=== PATIENT | male | born 1955 | race Caucasian/White ===

== ENCOUNTER 2021-12-14 11:22 | Outpatient (REF) | payer SELFPAY | END 2021-12-14 11:23 | disposition home or self-care (01) | LOC: HO.HAP 11:22 | PROVIDERS: Visit Provider Pediatrics | DX: Z13.89 Encounter for screening for other disorder (principal) ==

== ENCOUNTER 2022-11-06 10:51 | Outpatient (REF) | payer SELFPAY | END 2022-11-06 10:52 | disposition home or self-care (01) | LOC: HO.HAP 10:51 | PROVIDERS: Visit Provider Pediatrics | DX: Z13.89 Encounter for screening for other disorder (principal) ==

== ENCOUNTER 2022-12-12 12:01 | Outpatient (REF) | payer SELFPAY | END 2022-12-12 12:02 | disposition home or self-care (01) | LOC: HO.HAP 12:01 | PROVIDERS: Visit Provider Internal Medicine | DX: Z13.89 Encounter for screening for other disorder (principal) ==

== ENCOUNTER 2023-11-27 13:42 | Outpatient (REF) | payer SELFPAY | END 2023-11-27 13:43 | disposition home or self-care (01) | LOC: HO.HAP 13:42 | DX: Z13.89 Encounter for screening for other disorder (principal) ==

== ENCOUNTER 2023-12-25 15:41 | Outpatient (REF) | payer SELFPAY | END 2023-12-25 15:42 | disposition home or self-care (01) | LOC: HO.HAP 15:41 | DX: Z13.89 Encounter for screening for other disorder (principal) ==

== ENCOUNTER 2024-09-01 09:16 | Outpatient (REF) | payer BC, SELFPAY ==
--- OUTSIDE RECORDS SUMMARY | 2024-09-01 10:03 | XMS_ITS | Encounter Summary ---
Author Organization [facility] Address [address] [place] [address] Care Team Providers Care Sweatband Flanger Name Role Phone Pablo Bettencourt MD Primary Care Provider [phone] Reason for Visit * Reason Onset Date Comments Faxed Order Intitial Eval Summary for Rehab 08/02 Encounter Details Date Type Department Care Team (Late st Contact Info) Description 08/11/2024 Telephone Adult [facility] [address] [place] [phone] Geraldo Arriaza PA [address] [place] [address] Faxed Order Intitial Eval Summary for Rehab Social History Tobacco Use Types Packs/Day Years Used Date Smoking Tobacco: Former Cigarettes Q uit: 10/01/2015 Smokeless Tobacco: Never Alcohol Use Standard Drinks/Week Comments Not Currently 0 (1 standard drink = 0.6 oz pur e alcohol) Sex and Gender Information Value Date Recorded Sex Assigned at Not on file Legal Sex Male 11:27 AM EST Gender Identity Not on file Sexual Orientation Not on file documented as of this encounter Progress Notes * Rossy Stringer - 08/11/2024 12:37 PM EST PLEASE CLOSE MESSAGE WHEN ORDER HAS BEEN FAXED Faxed order Initial Eval [facility] requesting signature from provider. Please sign and fax back to [phone]. Order in yellow folder documented in this encounter Plan of Treatment Not on file documented as of this encounter Visit Diagnoses Not on filedocumented in this encounter Care Teams Sweatband Flanger Relationship Specialty Start Date End Date Pablo Bettencourt MD [address] [place] [phone] PCP - General Internal Medicine 03/18/19 documented as of this encounter
--- OUTSIDE RECORDS SUMMARY | 2024-09-01 10:03 | XMS_ITS | Clinical Summary ---
Author Organization [facility] [address] [facility] Address [address] [facility] [place] [address] Phone Care Team Providers Care Candy Counter Clerk Name Role Phone Pablo Bettencourt MD Primary Care Provider [phone] Allergies No known active allergies Medications acetaminophen (TYLENOL) 500 mg tablet Take 2 tablets (1,000 mg total) by mouth every 8 hours as needed. 07/28/2021 Active ibuprofen (ADVIL,MOTRIN) 200 mg tablet Take by mouth every 6 (six) hours if needed. Active Active Problems Problem Noted Date Diagnosed Date Renal cyst 06/06/2022 Overview (07/13/2024): Abd u/s: Complex small cyst in the upper pole of the right kidney with some partially calcified rim. Follow-up renal ultrasound in 6 months is recommended. 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 Repeat normal. Hyperlipidemia 07/03/2008 Low back pain 03/31/2006 Overview (07/13/2024): Onset mar 2006 Encounters Date Type Department Care Team Description 08/11/2024 Telephone Adult Medicine [facility] [address] [place] [phone] Geraldo Arriaza PA Faxed Order Intitial Eval Summary for Rehab 08/01/2024 9:45 AM EST Office Visit Adult [facility] [address] [place] [address] Geraldo Arriaza PA Acute exacerbation of chronic low back pain (Primary Dx) 06/13/2024 Telephone Adult [facility] [address] [place] [address] Pablo Bettencourt MD triage call back; wrenched back from Last 3 Months Immunizations Name Administration Dates Next Due Influenza Quadravalent, MDCK , 0.5ml, preservative free (Flucelvax) 6mo and older 07/31/2019 Influenza Quadravalent, MDCK , 0.5ml, with preservative (Flucelvax) 6mo and older 07/21/2021 Influenza trivalent, 0.5mL ( Fluad) 65yo and older 03/12/2023,05/24/2022,07/21/2021,2015,07/13/2012,04/06/2011,04/15/2007 Influenza trivalent, 0.5mL ( Fluzone High-dose) 65yo and older 03/17/2024,03/12/2023,05/24/2022 Influenza trivalent, with preservative (Fluzone; Afluria) 6mo and older 03/27/2016,07/13/2012,04/06/2011,2006 Tdap Tetanus diptheria acell ular pertussis (Boostrix; Adacel) 7yo and older 07/13/2017,01/07/2014,04/15/2007 Zoster Live 11/29/2016 Zoster recombinant (Shingrix ) 19yo and older 02/03/2022,07/21/2021 Surgical History Surgery Date Site/Laterality Comments HERNIA REPAIR PROCEDURE: HISTORICAL HERNIA REPAIR/ING SHOULDER SURGERY 07/2021 PROCEDURE: HISTORICAL SHOULDER SURGERY; COMMENT: left rotator arthroscopy COLONOSCOPY 12/01/2021 PROCEDURE: HISTORICAL COLONOSCOPY; COMMENT: hyperplastic polyps ROTATOR CUFF REPAIR 06/18/2023 Right PROCEDURE: HISTORICAL ROTATOR CUFF REPAIR; COMMENT: RT shoulder arthroscopy w RCR and augmentation. Subacromial decompression. Labral debridement. Biceps tenodesis Medical History Medical History Date Comments Lumbago 03/31/2006 DX:Lumbago; COMM ENT: Onset mar 2006 Alcohol abuse, unspecified DX:Al cohol abuse, unspecified Cocaine abuse, unspecified DX:Co joyce abuse, unspecified Hyperlipidemia 07/03/2008 DX:Hyperlipidemi a Neuropathy 10/02/2010 DX:Neuropathy Carpal tunnel syndrome 10/02/2010 DX:Carpal tunnel syndrome BPH (benign prostatic hyperplasia) 05/27/2013 DX:BPH (benign prostatic hyperplasia) Abscess of forearm, left 12/25/2013 DX:Absc ess of forearm, left Anxiety 12/02/2018 DX:Anxiety Depression 12/02/2018 DX:Depression Abdominal pain DX:Abdominal caesar n Muscle strain DX:Muscle strain Fatty liver DX:Fatty liver Kidney cysts DX:Kidney cysts Family History Medical History Relation Name Comments Suicide Attempts Brother No Known Problems Daughter Pancreatic cancer Father 50 Leukemia Mother 39 No Known Problems Sister 1 No Known Problems Sister 2 No Known Problems Sister 3 Parkinson's Disease Sister 4 Other: tourette's syndrome Son 1 No Known Problems Son 2 Blindness Neg Hx Glaucoma Neg Hx Macular degeneration Neg Hx Strabismus Neg Hx Relation Name Status Comments Brother Daughter Alive Father Mother Sister 1 Alive Sister 2 Alive Sister 3 Alive Sister 4 Son 1 Alive Son 2 Alive Social History Tobacco Use Types Packs/Day Years Used Date Smoking Tobacco: Former Cigarettes Q uit: 10/01/2015 Smokeless Tobacco: Never Tobacco Cessation:Counseling Given: Not Answered Alcohol Use Standard Drinks/Week Comments Not Currently 0 (1 standard drink = 0.6 oz pur e alcohol) Sex and Gender Information Value Date Recorded Sex Assigned at Not on file Legal Sex Male 11:27 AM EST Gender Identity Not on file Sexual Orientation Not on file Obstetrics History Last Filed Vital Signs Vital Sign Reading Time Taken Comments Blood Pressure 129/76 08/01/2024 9:56 AM EST Pulse 70 08/01/2024 9:56 AM EST Temperature 36.6 ??C (97.8 ??F) 08/01/2024 9:56 AM ES T Respiratory Rate - - Oxygen Saturation - - Inhaled Oxygen Concentration - - Weight 100 kg (221 lb) 08/01/2024 9:56 AM EST Height 177.8 cm (5' 10 ) 08/01/2024 9:56 AM EST Body Mass Index 31.71 08/01/2024 9:56 AM EST Plan of Treatment Health Maintenance Due Date Last Done Comments Hepatitis A Vaccines (1 of 2 - Risk 2-dose series) 09/15/1975 Pneumococcal Vaccine: 50+ Years (1 of 1 - PCV) 2006 Abdominal Aortic Aneurysm (AAA) Screen 06/10/2022 Lung Cancer Screening (Low Dose CT) 06/10/2022 Medicare Annual Wellness Visit 06/10/2022 Social Influencers of Health Screening 06/10/2022 Falls Risk Assessment 09/24/2024 09/25/2023 Depression Screening 02/18/2025 02/19/2024 Colorectal Cancer Screening: Colonoscopy 12/01/2026 12/01/2021 DTaP,Tdap,and Td Vaccines (5 - Td or Tdap) 07/13/2027 07/13/2017, 07/07/2015, 01/07/2014, Additional history exists Cholesterol Screening (Lipid Panel) 06/08/2028 06/08/2023 RSV Immunization Patients 60+ Years Old (1 - 1-dose 75+ series) 09/15/2031 Hepatitis C Screening Completed 01/10/2010 Zoster Vaccines Completed 02/03/2022, 07/03, 11/29/2016 COVID-19 Vaccine Completed 03/17/2024, 12/2021, 09/29/2020, Additional history exists Influenza Vaccine Completed 03/17/2024, , 03/12/2023, Additional history exists HIB Vaccines Aged Out No longer eligi ble based on patient's age to complete this topic HPV Vaccines Aged Out No longer eligi ble based on patient's age to complete this topic Hepatitis B Vaccines Aged Out No long er eligible based on patient's age to complete this topic IPV Vaccines Aged Out No longer eligi ble based on patient's age to complete this topic MMR Vaccines Aged Out No longer eligi ble based on patient's age to complete this topic Meningococcal ACWY Vaccine Aged Out N o longer eligible based on patient's age to complete this topic Meningococcal B Vacine Aged Out No lo nger eligible based on patient's age to complete this topic RSV Immunization Patients Under 20 months Aged Out No longer eligible based on patient's age to complete this topic Varicella Vaccines Aged Out No longer eligible based on patient's age to complete this topic Medical Devices Implanted Type Area Component Assembler Device Identifier Shelf Expiration Date Model / Serial / Lot [place] Sut 5.5mm Healicoil Regenesorb 3 Sutures [facility] [id number] Implanted:Qty: 1 on 06/18/2023 by Ebenezer Horton MD Right: Shoulder [employer] 12/28/2025 [id number] / / [id number] [place] Bone Arthro Del Sys Advncd [facility] [id number] Implanted:Qty: 1 on 06/18/2023 by Ebenezer Horton MD Right: Shoulder [employer] NEPH - [employer] 12/14/2025 [id number] / / [id number] Anchors Tendon 8 [facility] [id number] Implanted:Qty: 1 on 06/18/2023 by Ebenezer Horton MD Right: Shoulder [employer] 12/26/2025 2504-1 / / [id number] Implant Bioinductive W Arth Del Med [facility] [id number] Implanted:Qty: 1 on 06/18/2023 by Ebenezer Horton MD Right: Shoulder [employer] NE[employer] 02/02/2026 [id number] / / [id number] Anchors Tendon 8 [facility] [id number] Implanted:Qty: 1 on 06/18/2023 by Ebenezer Horton MD Right: Shoulder [employer] NEPH - [employer] 12/26/2025 2504-1 / / [id number] Procedures Procedure Name Priority Date/Time Associated Diagnosis Comments DEPRESSION SCREENING Routine 02/19/2024 FALLS RISK ASSESSMENT Routine 09/25/2023 LIPID PANEL Routine 06/08/2023 COLONOSCOPY Routine 12/01/2021 HEPATITIS C SCREENING Routine 01/10/2010 from Last 3 Months or Most Recently Relevant to Health Maintenance Results * Depression Screening (02/19/2024) Pathologist [facility] Depression Screening ABSTRACTED [facility] Provider HEALTH MAINTENANCE Final Result * Falls Risk Assessment (09/25/2023) [facility] Falls Risk Assessment ABSTRACTED [facility] Provider HEALTH MAINTENANCE Final Result * (ABNORMAL) Lipid panel (06/08/2023) [facility] LDL/HDL Ratio 7(A) 0 - 4 Triglycerides 288(A) 0 - 150 mg/dL Cholesterol 266(A) 0 - 200 mg/dL HDL 41 >=40 mg/dL LDL Cholesterol 168 0 - 1,010 mg/dL Blood Venous blood specimen / Unknown Result [facility] Provider LAB BLOOD ORDERABLES Henny l Result * Colonoscopy (12/01/2021) Pathologist [facility] Colonoscopy NO INTERPRETATION , ABSTRACTED Anatomical Region Laterality Modality Other [facility] Provider HEALTH MAINTENANCE Final Result * Hepatitis C Screening (01/10/2010) Pathologist [facility] Hepatitis C Screening ABSTRACTED [facility] Provider HEALTH MAINTENANCE Final Result from Last 3 Months or Most Recently Relevant to Health Maintenance Insurance MEDICARE [facility] Care Teams Candy Counter Clerk Relationship Specialty Start Date End Date Pablo Bettencourt MD [address] [place] [phone] PCP - General Internal Medicine 03/18/19
--- OUTSIDE RECORDS SUMMARY | 2024-09-01 10:03 | XMS_ITS | Clinical Summary ---
Author Organization [facility] Address [address] [place] [address] Care Team Providers Care Medical Billing Clerk Name Role Phone Eb Bettencourt MD Primary Care Provider [phone] Allergies No known active allergies Medications Medication Sig Dispensed Refills Start Date End Date Status acetaminophen (TYLENOL EXTRA STRENGTH) 500 MG tablet Take 2 tablets (1,000 mg total) by mouth every 8 (eight) hours as needed for pain for up to 60 doses. 60 tablet 0 06/18/2023 Active senna-docusate (Senna Plus) 8.6-50 MG Take 2 tablets by mouth every night at bedtime as needed for constipation (to prevent constipation after surgery while taking narcotic pain medication) for up to 30 doses. 30 tablet 0 06/18/2023 Active Active Problems No known active problems Family History Medical History Relation Name Comments Cancer Father Cancer Mother Relation Name Status Comments Father Mother Social History Tobacco Use Types Packs/Day Years Used Date Smoking Tobacco: Former Cigarettes 1.5 30 Q uit: 2016 Smokeless Tobacco: Never Alcohol Use Standard Drinks/Week Comments Not Currently 0 (1 standard drink = 0.6 oz pur e alcohol) Sex and Gender Information Value Date Recorded Sex Assigned at Male 06/11/2023 2:39 PM EST Gender Identity Not on file Sexual Orientation Not on file Job Start Date Occupation Industry Not on file Not on file Not on file Last Filed Vital Signs Vital Sign Reading Time Taken Comments Blood Pressure 124/67 06/18/2023 12:42 PM EST Pulse 60 06/18/2023 12:44 PM EST Temperature 36.3 ??C (97.4 ??F) 06/18/2023 1:17 PM ES T Respiratory Rate 20 06/18/2023 12:44 PM EST Oxygen Saturation 94% 06/18/2023 1:14 PM EST Inhaled Oxygen Concentration - - Weight 97.5 kg (215 lb) 06/18/2023 9:05 AM EST Height 177.8 cm (5' 10 ) 06/18/2023 9:05 AM EST Body Mass Index 30.85 06/18/2023 9:05 AM EST Plan of Treatment Health Maintenance Due Date Last Done Comments Hepatitis C Screening 1956 Lung Cancer Screening (Low Dose CT) 1956 COVID-19 Vaccine (#1) 03/17/1957 Depression Screening 1968 BMI Counseling 1974 Preventative Health Evaluation 1974 Colon Cancer Screening (Colonoscopy) 2001 Shingrix-Zoster Vaccine (1 of 2) 2006 Fall Risk Assessment 2021 Pneumococcal Vaccine (1 of 1 - PCV) 2021 Influenza Vaccine (#1) 2024 , 05/24/2022, 07/31/2019, Additional history exists DTap / Tdap / Td (4 - Td or Tdap) 07/13/2027 07/13/2017, 01/07/2014, 04/15/2007 RSV Adult > 60+ Yrs or (1 - 1-dose 75+ series) 09/15/2031 Hepatitis B Vaccines Aged Out No long er eligible based on patient's age to complete this topic RSV Ped < 20 months Aged Out No longe r eligible based on patient's age to complete this topic Medical Devices Implanted Type Area Builder'S Labourer Device Identifier Shelf Expiration Date Model / Serial / Lot Florien Sut 5.5mm Healicoil Regenesorb 3 Sutures [facility]o [id number] - [id number] Implanted:Qty: 1 on 06/18/2023 by Ebenezer Horton MD at [facility] Location Right: Shoulder [employer] 12/28/2025 [id number] / / [id number] Florien Bone Arthro Del Sys Advncd [facility] [id number] - [id number] Implanted:Qty: 1 on 06/18/2023 by Ebenezer Horton MD at [facility] Location Right: Shoulder [employer] 12/14/2025 [id number] / / [id number] Anchors Tendon 8 [facility] [id number] - [id number] Implanted:Qty: 1 on 06/18/2023 by Ebenezer Horton MD at [facility] Location Right: Shoulder [employer] 12/26/2025 [id number] Implant Bioinductive W Arth Del Med [facility]Endo [id number] - [id number] Implanted:Qty: 1 on 06/18/2023 by Ebenezer Horton MD at [facility] Location Right: Shoulder [employer] 02/02/2026 [id number] / / [id number] Anchors Tendon 8 [facility]Endo [id number] - [id number] Implanted:Qty: 1 on 06/18/2023 by Ebenezer Horton MD at [facility] Location Right: Shoulder [employer] 12/26/2025 2504-1 / / [id number] Care Teams Medical Billing Clerk Relationship Specialty Start Date End Date Eb Bettencourt MD PCP - [employer] Meter Tester 06/12/23
--- OUTSIDE RECORDS SUMMARY | 2024-09-01 10:03 | XMS_ITS | Encounter Summary ---
Author Organization [facility] Address [address] [place] [address] Care Team Providers Care Rigging Helper Name Role Phone Pablo Bettencourt MD Primary Care Provider [phone] Reason for Referral * Consultation (Routine) - Authorized Specialty Diagnoses / Procedures Referred By Contac t Referred To Contact Physical Therapy Diagnoses Acute exacerbation of chronic low back pain Geraldo Arriaza PA [address] [place] [address] Phone: tel: fax: Referral ID Status Reason Start Date Expiration Date Visits Requested Visits Authorized [id number] Authorized Specialty Services Required 08/01/2024 08/01/2025 1 1 Reason for Visit * Reason Comments Low Back Pain Encounter Details Date Type Department Care Team (Late st Contact Info) Description 08/01/2024 9:45 AM EST Office Visit Adult Medicine - [address] [address] Geraldo Arriaza PA [address] [place] [address] Acute exacerbation of chronic low back pain (Primary Dx) Social History Tobacco Use Types Packs/Day Years [...] on file documented as of this encounter Last Filed Vital Signs Vital Sign Reading [...] Mass Index 31.71 08/01/2024 9:56 AM EST documented in this encounter Progress Notes * Rosa Elena Eason MA - 08/01/2024 9:45 AM EST Back pain * JESU Acevedo - 08/01/2024 9:45 AM EST CHIEF COMPLAINT: Low Back Pain IDENTIFIER: Leo Panchal is a 68 y.o. old male. HPI: History of Present Illness The patient presents for evaluation of back pain. 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 08/10/2021 Primary osteoarthritis of first carpometacarpal joint of left hand 08/31/2020 Obesity (BMI 30-39.9) 05/16/2016 Alcohol abuse, in remission 04/26/2016 Cocaine abuse in remission ([facility]) 04/26/2016 Major depressive disorder, recurrent episode, mild ([facility]) 12/23/2015 BPH (benign prostatic hyperplasia) 05/27/2013 Left carpal tunnel syndrome 10/02/2010 Neuropathy 10/02/2010 Elevated PSA 01/08/2009 Hyperlipidemia 07/03/2008 Low back pain 03/31/2006 SOCIAL HISTORY: Social History Tobacco Use Smoking status: Former Current packs/day: 0.00 Types: Cigarettes Quit date: 10/01/2015 Years since quittin.8 Smokeless tobacco: Never Substance Use Topics Alcohol use: Not Currently FAMILY HISTORY: Family Status Relation Name Status Father Mother Daughter Alive Son Alive Son Alive Brother Sister Alive Sister Alive Sister Alive Sister Neg Hx (Not Specified) No partnership data on file Family History Problem Relation Name Age of Onset Pancreatic cancer Father 50 Leukemia Mother 39 No Known Problems Daughter Other (Other: tourette's syndrome) Son No Known Problems Son Suicide Attempts Brother No Known Problems Sister No Known Problems Sister No Known Problems Sister Parkinson's Disease Sister Blindness Neg Hx Glaucoma Neg Hx Macular degeneration Neg Hx Strabismus Neg Hx ACTIVE MEDICATIONS: Outpatient Medications Marked as Taking for the 08/01/24 encounter (Office Visit) with JESU Acevedo Medication Sig Dispense Refill acetaminophen (TYLENOL) 500 mg tablet Take 2 tablets (1,000 mg total) by mouth every 8 hours as needed. ibuprofen (ADVIL,MOTRIN) 200 mg tablet Take by mouth every 6 (six) hours if needed. ALLERGIES: Patient has no known allergies. PHYSICAL EXAM: Blood pressure 129/76, pulse 70, temperature 36.6 ??C (97.8 ??F), temperature source Temporal, height 1.778 m (70 ), weight 100 kg (221 lb). Body mass index is 31.71 kg/m??. Plan is deferred until next visit APPEARANCE: Alert and in no acute distress BACK: no pain to palpation, good flexion and extension, motor and sensory appear to be normal, negative SLR test in supine position, slight decreased extension, and slight decreased flexion NEURO: Awake, alert and oriented x 3 and reflexes symmetrical LABS: None at this time IMPRESSION: 1. Acute exacerbation of chronic low back pain PLAN: I have obtained verbal consent from Leo Panchal prior to the recording. I have advised Leo Panchal that he may refuse the recording and require the recording to be turned off at any time during this encounter. Assessment & Plan 1. Back pain - Symptoms suggest arthritis or muscle dysfunction - Pain is worse after sleep and prolonged sitting, consistent with arthritis - Advised physical therapy to strengthen and stretch affected muscles, improving quality of life and range of motion - Referral to [facility] provided He will self schedule Follow-up if no improvement for possible imaging and specialty referral Patient expressed verbal understanding and consents to the plan as outlined. Followup as necessary. This note was created using dictation software and may contain syntax and grammar errors. Orders Placed This Encounter Procedures Ambulatory referral to Physical Therapy and Athletic Training ADDITIONAL ORDERS: AMB REFERRAL TO PHYSICAL THERAPY AND ATHLETIC TRAINING JESU Acevedo on 08/01/2024 at 3:42 PM EST documented in this encounter Plan of Treatment Scheduled Referrals Name Type Priority Associated Diagnoses Orde r Schedule Ambulatory referral to Physical Therapy and Athletic Training Outpatient Referral Routine Acute exacerbation of chronic low back pain 1 Occurrences starting 08/01/2024 until 08/01/2025 documented as of this encounter Visit Diagnoses Diagnosis Acute exacerbation of chronic low back pain- Primary documented in this encounter Historical Medications * This list may reflect changes made after this encounter. ibuprofen (ADVIL,MOTRIN) 200 mg tablet Take by mouth every 6 (six) hours if needed. added in this encounter Care Teams Rigging Helper Relationship Specialty Start Date End Date Pablo Bettencourt MD [address] [place] [id number] PCP - General Internal Medicine 03/18/19 documented as of this encounter
--- OUTSIDE RECORDS SUMMARY | 2024-09-01 10:03 | XMS_ITS | Continuity of Care Document ---
Author Organization [facility] Address [address] [place] [address]- Care Team Providers Care Customer Service Officer Name Role Phone Eb Bettencourt MD Primary Care Physician Encounter [facility] [id number] Date(s): 08/05/24 - 08/29/[address] [address]- Encounter Diagnosis Low back pain, unspecified(Final) - Discharge Disposition: A-D/C Home Attending Physician: Eb Bettencourt MD Admitting Physician: Eb Bettencourt MD Referring Physician: Geraldo Preston Encounter Type: Disch Recurring OP Allergies, Adverse Reactions, Alerts No Known Allergies Immunizations Given and Recorded Vaccine Date Status Refusal Reason tetanus/diphtheria/pertussis, acel(Tdap) 07/07/15 Given Medications hydrOXYzine pamoate 50 mg oral capsule 1 capsule = 50 mg, By Mouth, 2 times a day, PRN for anxiety, # 14 capsule, 0 Refills, Soft Stop, 11/03/15 2:15:16 PM EDT, Capsule, [id number] Start Date: 11/03/15 Stop Date: 11/10/15 Status: Ordered Quantity: 14.0 Unit: capsule Repeat number: 1 naltrexone 50 mg oral tablet 1 tablet = 50 mg, By Mouth, Daily, for alcohol cravings, # 30 tablet, 0 Refills, Maintenance, 10/28/15 11:44:03 AM EDT, Tablet, [id number] Start Date: 10/28/15 Status: Ordered Quantity: 30.0 Unit: tablet Repeat number: 1 sertraline 100 mg oral tablet = 100 mg, By Mouth, Daily, for depression, # 30 tablet, 0 Refills, Maintenance, 10/28/15 11:43:39 AMEDT, Tablet, [id number] Start Date: 10/28/15 Status: Ordered Quantity: 30.0 Unit: tablet Repeat number: 1 traZODone 50 mg oral tablet 25 mg, By Mouth, Daily at bedtime, PRN, for insomnia, # 30 tablet, Refills 0, Tot. Refills 0, Maintenance, Insomnia, 10/29/15 8:31:13 AM EDT, Route to Pharmacy Electronically, [id number] Start Date: 10/29/15 Status: Ordered Quantity: 30.0 Unit: tablet Repeat number: 1 Social History Social History Type Response Smoking Status Current every day qing pete entered on: 07/07/15 Sex Sex Representation Male (finding) Patient Care team information Care Team Personnel Name: Vidal Ramos RN Position: [facility] RN Member Role: Primary Care Nurse Name: Eb Bettencourt MD Position: [facility] Physician - Primary Care Member Role: PCP Address: [address] [place] [address] [place] [address]- Telecom: Care Team Related Persons Name: VANESSA TEMPLE Insurance Providers Guarantor name: SILVINA Health Plan Information #: 1 Payer: MEDICARE PART B OUTPT Member Number: [id number] Policy Number: NA Group Number: SILVINA Health Plan Information #: 2 Payer: MEDEX Member Number: [id number] Policy Number: SILVINA Group Number: SILVINA
== END 2024-09-01 09:17 | disposition home or self-care (01) ==
LOC: HO.SH 09:16
DX: Z13.89 Encounter for screening for other disorder (principal)

== ENCOUNTER 2024-09-02 14:12 | Outpatient (REF) | payer SELFPAY ==
--- OUTSIDE RECORDS SUMMARY | 2024-09-02 17:58 | XMS_ITS | Encounter Summary ---
Author Organization [facility] Address [address] [place] [address] Care Team Providers Care Survey Operations Director Name Role Phone Pablo Bettencourt MD Primary Care Provider [phone] Reason for Visit * Reason Onset Date Comments Faxed Order Intitial Eval Summary for Rehab 08/02 Encounter Details Date Type Department Care Team (Late st Contact Info) Description 08/11/2024 Telephone Adult [facility] [address] [place] [phone] Geraldo Arriaza PA [address] [place] [address] Faxed Order Intitial Eval Summary for Rehab [...] [facility] requesting signature from provider. Please sign and fax back to [phone]. Order in yellow folder documented in this encounter Plan of Treatment Not on file documented as of this encounter Visit Diagnoses Not on filedocumented in this encounter Care Teams Survey Operations Director Relationship Specialty Start Date End Date Pablo Bettencourt MD [address] [place] [address] PCP - General Internal Medicine 03/18/19 documented as of this encounter
--- OUTSIDE RECORDS SUMMARY | 2024-09-02 17:58 | XMS_ITS | Clinical Summary ---
Author Organization [facility] Address [address] [place] [address] Care Team Providers Care Vamp Seamer Name Role Phone Eb Bettencourt MD Primary Care Provider [phone] Allergies No known active allergies Medications Medication [...] this topic Medical Devices Implanted Type Area Acquisition Advisor Device Identifier Shelf Expiration Date Model / Serial / Lot [place] Sut 5.5mm Healicoil Regenesorb 3 Sutures [facility]-Endo [id number] - [id number] Implanted:Qty: 1 on 06/18/2023 by Ebenezer Horton MD at [facility] Location Right: Shoulder [employer] 12/28/2025 [id number] / / [id number] [place] Bone Arthro Del Sys Advncd [facility]-Endo [id number] - [id number] Implanted:Qty: 1 on 06/18/2023 by Ebenezer Horton MD at [facility] Location Right: Shoulder [employer] 12/14/2025 [id number] / / [id number] Anchors Tendon 8 Smn-Endo [id number] - [id number] Implanted:Qty: 1 on 06/18/2023 by Ebenezer Horton MD at [facility] Location Right: Shoulder [employer] 12/26/2025 2504-1 [id number] Implant Bioinductive W Arth Del Med Smn-Endo [id number] - [id number] Implanted:Qty: 1 on 06/18/2023 by Ebenezer Horton MD at [facility] Location Right: Shoulder [employer] 02/02/2026 4565 / / [id number] Anchors Tendon 8 Smn-Endo [id number] - [id number] Implanted:Qty: 1 on 06/18/2023 by Ebenezer Horton MD at [facility] Location Right: Shoulder [employer] 12/26/2025 2504-1 / / [id number] Care Teams Vamp Seamer Relationship Specialty Start Date End Date Eb Bettencourt MD PCP - General Shrimp Header 06/12/23
--- OUTSIDE RECORDS SUMMARY | 2024-09-02 17:58 | XMS_ITS | Encounter Summary ---
Author Organization [facility] Address [address] [place] [address] Care Team Providers Care Planograph Operator Name Role Phone Pablo Bettencourt MD Primary Care Provider [phone] Reason for Referral * Consultation (Routine) - Authorized Specialty Diagnoses / Procedures Referred By Contac t Referred To Contact Physical Therapy Diagnoses Acute exacerbation of chronic low back pain Geraldo Arriaza PA [address] [place] [address] Phone: tel: fax: Referral ID Status Reason Start Date Expiration Date Visits Requested Visits Authorized [id number] Authorized Specialty Services Required 08/01/2024 08/01/2025 1 1 Reason for Visit * Reason Comments Low Back Pain Encounter Details Date Type Department Care Team (Late st Contact Info) Description 08/01/2024 9:45 AM EST Office Visit Adult Medicine - [address] [address] Geraldo Arriaza PA [address] [place] [address] Acute exacerbation of chronic low back pain [...] Reports lower back pain attributed to recent chcf and decreased physical activity - History of [...] information: [facility], where he has previously received treatment for [...] in remission 04/26/2016 Cocaine abuse in remission ([facility]) 04/26/2016 Major depressive disorder, recurrent episode, mild ([facility]) 12/23/2015 BPH (benign prostatic hyperplasia) 05/27/2013 Left [...] and range of motion - Referral to [facility] provided He will self schedule Follow-up if [...] TO PHYSICAL THERAPY AND ATHLETIC TRAINING JESU Aceveod on 08/01/2024 at 3:42 PM EST documented [...] needed. added in this encounter Care Teams Planograph Operator Relationship Specialty Start Date End Date Pablo Bettencourt MD [address] [place] [address] PCP - General Internal Medicine 03/18/19 documented as of this encounter
--- OUTSIDE RECORDS SUMMARY | 2024-09-02 17:58 | XMS_ITS | Clinical Summary ---
Author Organization [facility] [address] [facility] Address [address] [facility] [place] [address] Phone Care Team Providers Care Computer Numerical Control Operator Name Role Phone Pablo Bettencourt MD Primary Care Provider [phone] Allergies No known active allergies Medications acetaminophen [...] Care Team Description 08/11/2024 Telephone Adult Medicine [facility] [address] [place] [phone] Geraldo Arriaza PA Faxed Order Intitial Eval Summary for Rehab 08/01/2024 9:45 AM EST Office Visit Adult [facility] [address] [place] [address] Geraldo Arriaza PA Acute exacerbation of chronic low back pain (Primary Dx) 06/13/2024 Telephone Adult [facility] [address] [place] [address] Pablo Bettencourt MD triage call [...] this topic Medical Devices Implanted Type Area Agriculture Specialist Device Identifier Shelf Expiration Date Model / Serial / Lot [place] Sut 5.5mm Healicoil Regenesorb 3 Sutures [facility]-Endo [id number] Implanted:Qty: 1 on 06/18/2023 by Ebenezer Horton MD Right: Shoulder [employer] 12/28/2025 [id number] / / [id number] [place] Bone Arthro Del Sys Advncd [facility]-Endo [id number] Implanted:Qty: 1 on 06/18/2023 by Ebenezer Horton MD Right: Shoulder [employer] - [employer]TH[employer]ICS 12/14/2025 4403 / / [id number] Anchors Tendon 8 [facility]-Endo [id number] Implanted:Qty: 1 on 06/18/2023 by Ebenezer Horton MD Right: Shoulder [employer] 12/26/2025 2504-1 / / [id number] Implant Bioinductive W Arth Del Med [facility]-Endo [id number] Implanted:Qty: 1 on 06/18/2023 by Ebenezer Horton MD Right: Shoulder [employer] - [employer]TH[employer] 02/02/2026 4565 / / [id number] Anchors Tendon 8 [facility]-Endo [id number] Implanted:Qty: 1 on 06/18/2023 by Ebenezer Horton MD Right: Shoulder [employer] - ORTHOPAEDICS 12/26/2025 2504-1 / / [id number] Procedures Procedure Name Priority Date/Time Associated Diagnosis Comments DEPRESSION SCREENING Routine 02/19/2024 FALLS RISK ASSESSMENT Routine 09/25/2023 LIPID PANEL Routine 06/08/2023 COLONOSCOPY Routine 12/01/2021 HEPATITIS C SCREENING Routine 01/10/2010 from Last 3 Months or Most Recently Relevant to Health Maintenance Results * Depression Screening (02/19/2024) Pathologist Counts include 234 beds at the [facility] Depression Screening ABSTRACTED [facility] Provider HEALTH MAINTENANCE Final Result * Falls Risk Assessment (09/25/2023) [facility] Falls Risk Assessment ABSTRACTED [facility] Provider HEALTH MAINTENANCE Final Result * (ABNORMAL) Lipid panel (06/08/2023) [facility] LDL/HDL Ratio 7(A) 0 - 4 Triglycerides 288(A) 0 - 150 mg/dL Cholesterol 266(A) 0 - 200 mg/dL HDL 41 >=40 mg/dL LDL Cholesterol 168 0 - 1,010 mg/dL Blood Venous blood specimen / Unknown Result [facility] Provider LAB BLOOD ORDERABLES Henny l Result * Colonoscopy (12/01/2021) Pathologist Counts include 234 beds at the [facility] Colonoscopy NO INTERPRETATION , ABSTRACTED Anatomical Region Laterality Modality Other [facility] Provider HEALTH MAINTENANCE Final Result * Hepatitis C Screening (01/10/2010) Pathologist Counts include 234 beds at the [facility] Hepatitis C Screening ABSTRACTED [facility] Provider HEALTH MAINTENANCE Final Result from Last 3 Months or Most Recently Relevant to Health Maintenance Insurance MEDICARE [facility] Care Teams Computer Numerical Control Operator Relationship Specialty Start Date End Date Pablo Bettencourt MD [address] [place] [address] PCP - General Internal Medicine 03/18/19
== END 2024-09-02 14:13 | disposition home or self-care (01) ==
LOC: HO.HAP 14:12
DX: Z13.89 Encounter for screening for other disorder (principal)

== ENCOUNTER 2024-12-17 10:08 | Outpatient (REF) | payer SELFPAY ==
--- OUTSIDE RECORDS SUMMARY | 2024-12-17 11:25 | XMS_ITS | Clinical Summary ---
Author Organization [facility] Address [address] [place] [address] Care Team Providers Care Clerk Carrier Name Role Phone Eb Bettencourt MD Primary Care Provider [phone] Allergies No known active allergies Medications Medication [...] 60 06/18/2023 12:44 PM EST Temperature 36.3 C (97.4 F) 06/18/2023 1:17 PM EST Respiratory Rate 20 06/18/2023 12:44 PM EST [...] of 1 - PCV) 2021 Influenza Vaccine (Season Ended) 2025 03/12/2023, 05/24/2022, 07/31/2019, Additional history exists DTap / [...] this topic Medical Devices Implanted Type Area Tape Librarian Device Identifier Shelf Expiration Date Model / Serial / Lot [place] Sut 5.5mm Healicoil Regenesorb 3 Sutures [facility]-Endo [id number] - [id number] Implanted:Qty: 1 on 06/18/2023 by Ebenezer Horton MD at [facility] Location Right: Shoulder [employer] 12/28/2025 [id number] / / [id number] [place] Bone Arthro Del Sys Advncd [facility]-Endo 4403-279701 - [id number] Implanted:Qty: 1 on 06/18/2023 by Ebenezer Horton MD at [facility] Location Right: Shoulder [employer] 12/14/2025 [id number] / / [id number] Anchors Tendon 8 Smn-Endo 4511-5-400562 - [id number] Implanted:Qty: 1 on 06/18/2023 by Ebenezer Horton MD at [facility] Location Right: Shoulder [employer] 12/26/2025 2504-1 / [id number] Implant Bioinductive W Arth Del Med Smn-Endo 4565-827877 - [id number] Implanted:Qty: 1 on 06/18/2023 by Ebenezer Horton MD at [facility] Location Right: Shoulder [employer] 02/02/2026 4565 / / [id number] Anchors Tendon 8 Smn-Endo 0547-5-653698 - [id number] Implanted:Qty: 1 on 06/18/2023 by Ebenezer Horton MD at [facility] Location Right: Shoulder [employer] 12/26/2025 2504-1 / [id number] Care Teams Clerk Carrier Relationship Specialty Start Date End Date Eb Bettencourt MD PCP - General Chef Concierge 06/12/23
--- NOTE | 2024-12-17 14:13 | MHC.AU.HA3 ---
Hearing Instrument Follow-Up- Binaural Date of Visit: 12/17/24 Right Ear: Make, Model, Color, Serial Number: Jessica Haddad AI 1600 ITE-R SN: [id number] Feed Grinder Repair Warranty: 12/07/2024 Feed Grinder Loss and Damage Warranty: 12/07/2024 [facility] Service Plan: 12/07/2024 Battery Size: Rechargeable Type of Wax Guard: HearClear Dispensed By: [facility] Date of Fittin11/23/2021 Left Ear: Make, Model, Color, Serial Number: Jessica Haddad AI 1600 ITE-R SN: [id number] Feed Grinder Repair Warranty: 12/07/2024 Feed Grinder Loss and Damage Warranty: 12/07/2024 [facility] Service Plan: 12/07/2024 Battery Size: Rechargeable Type of Wax Guard: HearClear Dispensed By: [facility] Date of Fittin11/23/2021 Follow-Up Summary: Left LAZO dropped off, . Found wax guard clogged. Cleaned hearing aid, replaced wax guard, replaced microphone cover. Listening check positive. Recommendations: Recommendations: Hearing instrument follow-up or maintenance as needed. Diagnosis Code(s): Primary Diagnosis: H90.3 Bilateral Sensorineural Hearing Loss Signature: Provider: Daja Sr, [facility]
== END 2024-12-17 10:09 | disposition home or self-care (01) ==
LOC: HO.SH 10:08
PROVIDERS: Visit Provider Pediatrics
DX: Z13.89 Encounter for screening for other disorder (principal)

== ENCOUNTER 2024-12-17 10:14 | Outpatient (REF) | payer SELFPAY | END 2024-12-17 10:15 | disposition home or self-care (01) | LOC: HO.SH 10:14 | PROVIDERS: Visit Provider Pediatrics | DX: H90.3 Sensorineural hearing loss, bilateral (principal) | CPT/HCPCS: V5267 ==

== ENCOUNTER 2024-12-18 12:26 | Outpatient (REF) | payer SELFPAY ==
--- OUTSIDE RECORDS SUMMARY | 2024-12-18 13:34 | XMS_ITS | Clinical Summary ---
Author Organization [facility] Address [address] [place] [address] Care Team Providers Care Adapted Physical Education Specialist Name Role Phone Eb Bettencourt MD Primary Care Provider [phone] Allergies No known active allergies Medications Medication [...] this topic Medical Devices Implanted Type Area Visualizer Device Identifier Shelf Expiration Date Model / Serial / Lot [place] Sut 5.5mm Healicoil Regenesorb 3 Sutures [facility]-Endo [id number] - [id number] Implanted:Qty: 1 on 06/18/2023 by Ebenezer Horton MD at [facility] Location Right: Shoulder [employer] 12/28/2025 [id number] / / [id number] [place] Bone Arthro Del Sys Advncd [facility]-Endo 4403-279401 - [id number] Implanted:Qty: 1 on 06/18/2023 by Ebenezer Horton MD at [facility] Location Right: Shoulder [employer] 12/14/2025 4403 / / [id number] Anchors Tendon 8 Smn-Endo 1561-9-335734 - [id number] Implanted:Qty: 1 on 06/18/2023 by Ebenezer Horton MD at [facility] Location Right: Shoulder [employer] 12/26/2025 2504-1 / [id number] Implant Bioinductive W Arth Del Med Smn-Endo 4565-061820 - [id number] Implanted:Qty: 1 on 06/18/2023 by Ebenezer Horton MD at [facility] Location Right: Shoulder [employer] 02/02/2026 4565 / / [id number] Anchors Tendon 8 Smn-Endo 3116-4-057352 - [id number] Implanted:Qty: 1 on 06/18/2023 by Ebenezer Horton MD at [facility] Location Right: Shoulder [employer] 12/26/2025 2504-1 / [id number] Care Teams Adapted Physical Education Specialist Relationship Specialty Start Date End Date Eb Bettencourt MD PCP - General Top Ironer 06/12/23
== END 2024-12-18 12:27 | disposition home or self-care (01) ==
LOC: HO.HAP 12:26
PROVIDERS: PCP Internal Medicine; Visit Provider Internal Medicine
DX: Z46.1 Encounter for fitting and adjustment of hearing aid (principal); H90.3 Sensorineural hearing loss, bilateral
CPT/HCPCS: 92593

== ENCOUNTER 2025-07-01 09:31 | Outpatient (REF) | payer SELFPAY | END 2025-07-01 09:32 | disposition home or self-care (01) | LOC: HO.HAP 09:31 | PROVIDERS: Visit Provider Pediatrics | DX: Z46.1 Encounter for fitting and adjustment of hearing aid (principal); H90.3 Sensorineural hearing loss, bilateral | CPT/HCPCS: V5014 ==